=== PATIENT | female | born 1985 | race Caucasian/White ===

== ENCOUNTER 2022-03-10 15:50 | Emergency (ER) | payer OTHER ==
[~2022-03-10] VITALS: Ht 157.5 cm; Wt 79.5 kg
[2022-03-10 16:07] VITALS: BP 116/76
[2022-03-10] MEDS ORDERED: HYDROcodone/acetaminophen 10/325mg tab PO ONE (18:20)
[2022-03-10] MEDS ORDERED: amox tr/potassium clavulanate 875/125mg TAB PO ONE (18:20)
[2022-03-10] MEDS ORDERED: TETanus/Pertussis (Acell)/Diphther VAC/PF (Tdap-Adult) 0.5ml syringe IMVAC ONE (18:20)
[2022-03-10] MEDS ORDERED: ketorolac trometh inj. 60 MG/2 ML VIAL IM ONE (18:20)
[2022-03-10] MEDS ORDERED: LIDOcaine 1% 30ml preserv. free vial IJ STA (18:58)
[2022-03-10] MEDS ORDERED: AMOX-117 PO (19:53)
[2022-03-11] MEDS ORDERED: HYDR-3965 PO (15:14)
== END 2022-03-10 20:23 | disposition home or self-care (01) ==
LOC: ER 15:51
DX: S02.5XXA Fracture of tooth (traumatic), initial encounter for closed fracture (principal); S01.511A Laceration without foreign body of lip, initial encounter; Z79.2 Long term (current) use of antibiotics; W18.2XXA Fall in (into) shower or empty bathtub, initial encounter; Z91.81 History of falling; Y93.89 Activity, other specified; Y92.89 Other specified places as the place of occurrence of the external cause; Y99.8 Other external cause status
CPT/HCPCS: 40650; 70486; 90471; 90715; 96372; 99284; J1885; 12011; A6449

== ENCOUNTER 2023-05-04 07:41 | Outpatient (CLI) | payer BC ==
[2023-05-04 08:21] LABS: BASOPHILS % (AUTO) 0.5 % (0-1); EOSINOPHILS # (AUTO) 0.1 X10'3 (0-0.9); EOSINOPHILS % (AUTO) 1.9 % (0-6); HEMATOCRIT 41.8 % (35.0-45.0); HEMOGLOBIN 14.2 g/dl (12.0-16.0); LYMPHOCYTES # (AUTO) 2.1 X10'3 (1.1-4.8); LYMPHOCYTES % (AUTO) 33.8 % (21-51); MEAN CORPUSCULAR HEMOGLOBIN 31.7 PG (27.0-31.0); MEAN CORPUSCULAR HGB CONC 33.8 g/dL (33.0-36.5); MEAN CORPUSCULAR VOLUME 93.6 FL (78-98); MEAN PLATELET VOLUME 8.8 FL (7.4-10.4); MONOCYTES # (AUTO) 0.4 X10'3 (0-0.9); MONOCYTES % (AUTO) 7.1 % (2-12); NEUTROPHILS # (AUTO) 3.6 X10'3 (1.8-7.7); NEUTROPHILS % (AUTO) 56.7 % (42-75); PLATELET COUNT 251 X10'3 (140-440); RED BLOOD COUNT 4.47 X10'6 (4.20-5.60); RED CELL DISTRIBUTION WIDTH 13.4 % (11.5-14.5); WHITE BLOOD COUNT 6.3 X10'3 (4.5-11.0)
[2023-05-04 09:30] LABS: ALANINE AMINOTRANSFERASE 22 U/L (12-78); ALBUMIN 3.8 G/DL (3.4-5.0); ALBUMIN/GLOBULIN RATIO 1.1 (1.1-1.5); ALKALINE PHOSPHATASE 61 IU/L (46-116); ANION GAP 6 (8-16); ASPARTATE AMINO TRANSFERASE 13 U/L (10-37); BILIRUBIN,TOTAL 0.5 MG/DL (0.1-1.0); BLOOD UREA NITROGEN 7 MG/DL (7-18); BUN/CREATININE RATIO 8.6 (10.0-20.0); CALCIUM 8.6 MG/DL (8.5-10.1); CHLORIDE 105 MMOL/L (99-107); CREATININE 0.81 MG/DL (0.40-0.90); GLUCOSE 103 MG/DL (70-104); POTASSIUM 3.7 MMOL/L (3.5-5.1); SODIUM 139 MMOL/L (135-145); TOTAL CARBON DIOXIDE 27.8 MMOL/L (24-32); TOTAL PROTEIN 7.4 G/DL (6.4-8.2); eGFR 80 ML/MIN
[2023-05-04 09:32] LABS: HEMOGLOBIN A1C 5.2 % (4.5-6.2)
[2023-05-04 09:39] LABS: CHOL/HDL RATIO 3.3 (0.00-4.99); CHOLESTEROL 136 MG/DL (0-200); FREE T4 (FREE THYROXINE) 1.23 NG/DL (0.73-1.40); HDL CHOLESTEROL 41 MG/DL (35-60); LDL CHOLESTEROL 77 MG/DL (50-100); THYROID STIMULATING HORMONE 0.95 ulU/ml (0.34-4.50); TRIGLYCERIDES 46 MG/DL (20-135)
== END 2023-05-04 23:59 | disposition home or self-care (01) ==
LOC: LAB 07:41
PROVIDERS: ATTEND Nurse Practitioner Family
DX: R89.8 Other abnormal findings in specimens from other organs, systems and tissues (principal); R53.83 Other fatigue; R63.5 Abnormal weight gain
CPT/HCPCS: 36415; 80053; 80061; 82652; 83036; 84439; 84443; 85025

== ENCOUNTER 2023-09-07 11:03 | Emergency (ER) | payer BC ==
[~2023-09-07] VITALS: Ht 157.5 cm; Wt 65.9 kg
[2023-09-07 11:17] VITALS: BP 128/84; PULSE 75; RESP 16; O2SAT 100
[2023-09-07] MEDS ORDERED: NAPR-56 PO (13:47)
[2023-09-07 15:28] VITALS: TEMP 98.3
== END 2023-09-07 15:30 | disposition home or self-care (01) ==
LOC: ER 11:03
DX: B34.9 Viral infection, unspecified (principal); Z20.822 Contact with and (suspected) exposure to COVID-19
CPT/HCPCS: 36415; 87502; 87503; 87811; 99283